=== PATIENT | male | born 1955 | race Caucasian/White ===

== ENCOUNTER → 2017-08-01 11:25 | Outpatient (CLI) | payer BC, SELFPAY ==
[2017-08-01 12:37] LABS: Add Manual Diff / Slide Review NO; Eosinophils Percent Auto 5.7 % (2-4); Hematocrit 38.3 % (41-53); Lymphocytes Percent Auto 21.4 % (25-40); Mean Corpuscular HGB Conc 33.9 % (30-36); Mean Corpuscular Hemoglobin 29.5 PG (26-34); Neutrophils Absolute Auto 5200 /uL (3000-5900); Neutrophils Percent Auto 60.9 % (50-75); Platelet Count 316 X10^3/uL (150-400); Red Blood Cell Count 4.41 X10^6/uL (4.5-5.9); Red Cell Distribution Width 13.2 % (11.6-14.8); White Blood Cell Count 8.5 X10^3/uL (4.5-11.0)
[2017-08-01 13:01] LABS: Alanine Aminotransferase 34 IU/L (21-72); Albumin 4.4 g/dL (3.5-5.0); Albumin Globulin Ratio 1.4 (1.0-2.8); Alkaline Phosphatase 73 U/L (38-126); Aspartate Aminotransferase 32 IU/L (17-59); BUN Creatinine Ratio 21.1 (6-22); Bilirubin Total 0.6 mg/dL (0.2-1.3); Blood Urea Nitrogen 19 mg/dL (9-20); Calcium 9.2 mg/dL (8.4-10.2); Carbon Dioxide 31 mmol/L (22-32); Chloride 99 mmol/L (98-107); Cholesterol 180 mg/dL (140-199); Estimated Glomerular Filt Rate > 60.0 mL/min (>60); Globulin 3.1 g/dL (1.7-4.1); Glucose 95 mg/dL (70-100); HDL Cholesterol 59 mg/dL (40-60); HEMOLYSIS < 15 (0-50); LDL Cholesterol Calculated 111 mg/dL (<100); Potassium 5.1 mmol/L (3.4-5.1); Sodium 139 mmol/L (137-145); Total Protein 7.5 g/dL (6.3-8.2); Triglycerides 51 mg/dL (35-150)
[2017-08-01 13:29] LABS: Thyroid Stimulating Hormone 2.34 uIU/mL (0.47-4.68)
[2017-08-01 16:05] LABS: Vitamin D 25 Hydroxy (D3) 70.3 ng/mL (30.0-100.0)
[2017-08-01 16:58] LABS: Hep C Virus Ab w/Reflex Quant NEGATIVE s/c (NEGATIVE)
== END ==
PROVIDERS: PCP Physician Assistant Medical; Visit Provider Physician Assistant Medical
DX: Z00.00 Encounter for general adult medical examination without abnormal findings (principal); E55.9 Vitamin D deficiency, unspecified; Z13.818 Encounter for screening for other digestive system disorders; E78.2 Mixed hyperlipidemia; F32.9 Major depressive disorder, single episode, unspecified
CPT/HCPCS: 36415; 80053; 80061; 82306; 84443; 85025; 86803

== ENCOUNTER → 2018-04-11 14:02 | Outpatient (CLI) | payer BC, SELFPAY ==
[2018-04-11 14:29] LABS: Blood Urea Nitrogen 26 mg/dL (9-20); Estimated Glomerular Filt Rate 56.3 mL/min (>60)
== END ==
PROVIDERS: Family Provider Internal Medicine; PCP Physician Assistant Medical; Visit Provider Orthopaedic Surgery
DX: Z01.818 Encounter for other preprocedural examination (principal)
CPT/HCPCS: 36415; 82565; 84520

== ENCOUNTER → 2019-08-13 19:22 | Outpatient (ROUT) | payer BC, SELFPAY ==
[2019-08-13 20:03] LABS: Creatine Kinase 117 U/L (55-170)
[2019-08-13 20:21] LABS: C-Reactive Protein Quant < 0.5 mg/dL (<1.0)
[2019-08-13 20:23] LABS: Erythrocyte Sedimentation Rate 15 MM/HR (0-15)
[2019-08-13 20:24] LABS: TSH w/ Reflex to FT4 2.06 uIU/mL (0.47-4.68)
[2019-08-16 10:12] LABS: Aldolase 4.5 U/L (3.3-10.3)
[2019-08-17 18:40] LABS: ANA Screen, IFA Positive (.)
== END ==
PROVIDERS: Family Provider Internal Medicine; PCP Physician Assistant Medical; Visit Provider Internal Medicine
DX: R53.83 Other fatigue (principal); M79.7 Fibromyalgia; R23.1 Pallor; I73.00 Raynaud's syndrome without gangrene
CPT/HCPCS: 82085; 82550; 84443; 85651; 86038; 86140

== ENCOUNTER → 2019-11-28 08:51 | Outpatient (CLI) | payer BC, SELFPAY ==
[2019-11-28 09:47] LABS: UR Morphine/Opiate cutoff 300 Positive (Negative); Ur Creatinine Normal (Normal); Ur Specific Gravity Normal (Normal); Urine Amphetamines Negative (Negative); Urine Barbiturates Negative (Negative); Urine Benzodiazepines Negative (Negative); Urine Cocaine Negative (Negative); Urine MDMA Negative (Negative); Urine Methadone Negative (Negative); Urine Methamphetamines Negative (Negative); Urine Oxycodone Negative (Negative); Urine Phencyclidine Negative (Negative); Urine Tetrahydrocannabinol Positive (Negative); Urine Tricyclic Antidepressant Negative (Negative); Urine pH Normal (Normal)
[2019-11-28 09:59] LABS: Erythrocyte Sedimentation Rate 11 MM/HR (0-15)
[2019-11-28 10:09] LABS: Alanine Aminotransferase 29 IU/L (<50); Albumin 4.2 g/dL (3.5-5.0); Albumin Globulin Ratio 1.4 (1.0-2.8); Alkaline Phosphatase 79 U/L (38-126); Aspartate Aminotransferase 31 IU/L (17-59); BUN Creatinine Ratio 31.1 (6-22); Bilirubin Total 0.5 mg/dL (0.2-1.3); Blood Urea Nitrogen 28 mg/dL (9-20); C-Reactive Protein Quant 0.7 mg/dL (<1.0); Calcium 9.4 mg/dL (8.4-10.2); Carbon Dioxide 30 mmol/L (22-32); Chloride 105 mmol/L (98-107); Cholesterol 212 mg/dL (140-199); Creatine Kinase 138 U/L (55-170); Estimated Glomerular Filt Rate > 60.0 mL/min (>60); Globulin 3.1 g/dL (1.7-4.1); Glucose 103 mg/dL (80-110); HDL Cholesterol 61 mg/dL (40-60); HEMOLYSIS < 15 (0-50); LDL Cholesterol Calculated 135 mg/dL (<100); Potassium 4.5 mmol/L (3.4-5.1); Sodium 139 mmol/L (137-145); Total Protein 7.3 g/dL (6.3-8.2); Triglycerides 78 mg/dL (35-150)
[2019-11-28 10:13] LABS: Rheumatoid Factor < 8.6 IU/mL (<12.0)
[2019-11-28 10:55] LABS: Vitamin B12 446 pg/mL (239-931)
[2019-11-28 15:05] LABS: Hep C Virus Ab w/Reflex Quant NEGATIVE s/c (NEGATIVE)
[2019-11-29 15:22] LABS: Albumin 3.6 g/dL (2.9-4.4); Alpha-1-Globulin 0.2 g/dL (0.0-0.4); Alpha-2-Globulin 0.8 g/dL (0.4-1.0); Globulin Total 3.1 g/dL (2.2-3.9); Protein, Total 6.7 g/dL (6.0-8.5)
[2019-12-01 17:13] LABS: CCP Antibodies IgG/IgA 3 units (0-19)
[2019-12-02 15:40] LABS: ANA Screen, IFA Positive (.)
== END ==
PROVIDERS: Family Provider Internal Medicine; PCP Internal Medicine; Referring Provider Internal Medicine; Visit Provider Internal Medicine
DX: E78.5 Hyperlipidemia, unspecified (principal); G89.4 Chronic pain syndrome; G62.9 Polyneuropathy, unspecified; R76.8 Other specified abnormal immunological findings in serum; M15.8 Other polyosteoarthritis
CPT/HCPCS: 36415; 80053; 80061; 80305; 82550; 82607; 84155; 84165; 85651; 86038; 86140; 86200; 86430; 86803

== ENCOUNTER → 2019-12-28 10:53 | Outpatient (CLI) | payer BC, SELFPAY ==
--- NOTE | 2019-12-28 | DI.MRI.S_ITS ---
PROCEDURE: MR LUMBAR SPINE WO CON INDICATIONS: Spinal stenosis, lumbar region with neurogenic claudication TECHNIQUE: Noncontrast sagittal T1 spin echo and T2 fast echo, sagittal STIR, axial T1 and T2 fast spin echo through the lumbar spine. In cases with scoliosis, additional coronal T2 fast spin echo may be performed. COMPARISON: [facility], CR, XR LUMBAR SPINE 2 OR 3 VIEWS, 12/18/2019, 15:21. [facility], MR, MR LUMBAR SPINE WITH/WITHOUT CONTRAST, 04/12/2018, 10:44. [facility], MR, L-SPINE WITHOUT CONTRAST, 09/13/2011, 13:56. FINDINGS: Image quality: Excellent. Alignment and Curvature: Trace retrolisthesis of L4 on L5 and of L5 on S1. Bone Marrow: Marrow is of normal overall signal. No acute vertebral body compression fractures. Spinal Cord: Conus medullaris terminates at the L1-L2 level. Visualized cord demonstrates normal signal and size. Paraspinous Soft Tissues: No paravertebral masses. T12-L1: No canal stenosis or foraminal stenosis. L1-L2: Unchanged. Mild facet hypertrophy. No canal stenosis or foraminal stenosis. L2-L3: Unchanged. Mild facet hypertrophy. No canal stenosis or foraminal stenosis. L3-L4: Stable findings. Mild disc bulge. Facet hypertrophy. No canal stenosis or significant foraminal stenosis. L4-L5: Chronic severe disc height loss. Diffuse posterior disc post osteophyte. Remote left hemilaminectomy. No central canal stenosis. Bilateral facet hypertrophy. Mild right foraminal narrowing. Moderate to severe left foraminal narrowing, in part secondary to a facet joint cyst, with flattening deformity on the exiting left L4 nerve root. L5-S1: Remote left hemilaminectomy. Severe disc height loss. Mild diffuse posterior disc post osteophyte. Bilateral facet hypertrophy. No central canal stenosis. Severe right foraminal narrowing with impingement on the right L5 nerve root. Mild left foraminal narrowing. IMPRESSION: 1. Remote left hemilaminectomy at L4-L5 and L5-S1. 2. No central canal stenosis. 3. Multilevel facet hypertrophy. 4. At L4-L5, there is moderate to severe left foraminal narrowing, in part secondary to a facet joint cyst. 5. At L5-S1, there is severe right foraminal narrowing. Dictated by: Dashawn Hartmann M.D. on 12/30/2019 at 9:30 Approved by: Dashawn Hartmann M.D. on 12/30/2019 at 9:46
== END ==
PROVIDERS: Family Provider Internal Medicine; PCP Internal Medicine; Referring Provider Orthopaedic Surgery; Visit Provider Orthopaedic Surgery
DX: M48.062 Spinal stenosis, lumbar region with neurogenic claudication (principal)
CPT/HCPCS: 72148

== ENCOUNTER → 2020-01-06 07:25 | Outpatient (CLI) | payer BC, SELFPAY ==
[2020-01-06 08:37] LABS: Cholesterol 234 mg/dL (140-199); HDL Cholesterol 63 mg/dL (40-60); LDL Cholesterol Calculated 147 mg/dL (<100); Triglycerides 119 mg/dL (35-150)
== END ==
PROVIDERS: Family Provider Internal Medicine; PCP Internal Medicine; Referring Provider Internal Medicine; Visit Provider Internal Medicine
DX: E78.5 Hyperlipidemia, unspecified (principal)
CPT/HCPCS: 36415; 80061

== ENCOUNTER → 2020-04-17 15:25 | Outpatient (CLI) | payer BC, SELFPAY ==
[2020-04-17] MEDS: COVID-19 VACC, Ad26(JANSSEN)/PF 0.5 ML IM (15:35)
== END ==
PROVIDERS: Family Provider Internal Medicine; PCP Internal Medicine; Visit Provider Internal Medicine
DX: Z23 Encounter for immunization (principal)
CPT/HCPCS: 0031A; 91303

== ENCOUNTER → 2021-11-19 15:30 | Outpatient (CLI) | payer BC, SELFPAY ==
--- NOTE | 2021-11-19 15:31 | DI.MRI.S_ITS ---
PROCEDURE: MR LUMBAR SPINE WO CON INDICATIONS: Spinal stenosis, lumbar TECHNIQUE: Noncontrast sagittal T1 spin echo and T2 fast echo, sagittal STIR, and T2 fast spin echo through the lumbar spine. In cases with scoliosis, additional coronal T2 fast spin echo may be performed. COMPARISON: [facility], MR, MR LUMBAR SPINE WO CON, 12/28/2019, 11:40. [facility], MR, MR LUMBAR SPINE WITH/WITHOUT CONTRAST, 04/12/2018, 10:44. [facility], MR, L-SPINE WITHOUT CONTRAST, 09/13/2011, 13:56. FINDINGS: Image quality: Excellent. Alignment and Curvature: Minimal dextroconvex scoliotic curvature is seen. No focal AP alignment abnormality is seen. Bone Marrow: Marrow is of normal overall signal. No acute vertebral body compression fractures. Spinal Cord: Conus medullaris terminates at the L1 level. Visualized cord demonstrates normal signal and size. Paraspinous Soft Tissues: No paravertebral masses. T12-L1: Normal appearance. L1-L2: Normal appearance. L2-L3: Normal appearance. L3-L4: Spxk-vr-vgyjxrzx loss of disc height and disc signal can be seen. Reactive marrow endplate changes are seen anteriorly, which are hypointense on T1-weighted imaging and hyperintense on T2 weighted imaging, which is most consistent with edema (Modic type I changes). Moderate disc bulge is seen, which is eccentric to the left. There is a superimposed central disc protrusion. Mild to moderate facet hypertrophy is seen. There is moderate left-sided and no significant right-sided neural foraminal narrowing. Mild to moderate central canal narrowing is seen. These imaging findings have progressed compared to the prior study. L4-L5: Moderate to severe loss of disc height and disc signal can be seen. Reactive marrow endplate changes are seen, which demonstrate mixed T1 weighted and T2-weighted signal, and are attributed to a combination of edema and fatty metaplasia (Modic type I and Modic type II changes). Moderate disc bulge is seen, which is eccentric to the left. There is a superimposed central disc protrusion. Moderate facet joint hypertrophy is seen. There is moderate right-sided and moderate to severe left-sided neural foraminal narrowing. There is a degree of compression seen upon the exiting left L4 nerve root. No central canal narrowing is seen. When comparison is made with the prior images, these findings are similar. L5-S1: Moderate to severe loss of disc height and disc signal can be seen. Reactive marrow endplate changes are seen which are hypointense on T1-weighted imaging and hyperintense on T2 weighted imaging, which is most consistent with edema (Modic type I changes). Moderate disc bulge is seen, which is eccentric to the right. Moderate facet joint hypertrophy is seen. Apparent left hemilaminectomy change can be seen. Please correlate with known patient history. There is moderate left-sided and moderate to severe right-sided neural foraminal narrowing. There is a degree of compression seen upon the exiting right L5 nerve root. No central canal narrowing is seen. When comparison is made with the prior images, these findings are similar. IMPRESSION: Focal lower lumbar spine degenerative changes are seen, which are slightly progressed at L3-L4 compared to 2020. Dictated by: Sinan Guzman M.D. on 11/19/2021 at 16:07 Approved by: Sinan Guzman M.D. on 11/19/2021 at 16:11
== END ==
PROVIDERS: Family Provider Internal Medicine; PCP Internal Medicine; Referring Provider Physician Assistant; Visit Provider Physician Assistant
DX: M51.36 Other intervertebral disc degeneration, lumbar region (principal); M48.062 Spinal stenosis, lumbar region with neurogenic claudication; M47.816 Spondylosis without myelopathy or radiculopathy, lumbar region; Z98.890 Other specified postprocedural states
CPT/HCPCS: 72148

== ENCOUNTER 2022-11-16 09:27 | Emergency (ER) | payer MEDICARE, BC, SELFPAY ==
[2022-11-16 09:30] VITALS: BP 146/72; PULSE 79; RESP 20; TEMP 37.1; O2SAT 99; BMI 24.3
--- NOTE | 2022-11-16 09:38 | DI.RAD.S_ITS ---
PROCEDURE: XR CHEST 1V INDICATIONS: productive cough TECHNIQUE: One view of the chest was acquired. COMPARISON: [facility], , CHEST 2 VIEW, 05/27/2010, 16:09. FINDINGS: Surgical changes and devices: Partially visualized thoracolumbar fixation rods. Lungs and pleura: Lungs are clear. No pleural effusions or pneumothorax. Mediastinum: Mediastinal contours appear normal. Heart size is normal. Bones and chest wall: No suspicious bony lesions. Overlying soft tissues appear unremarkable. IMPRESSION: Portable chest within normal limits for age. Dictated by: Nisa Ayala M.D. on 11/16/2022 at 10:15 Approved by: Nisa Ayala M.D. on 11/16/2022 at 10:15
--- NOTE | 2022-11-16 10:30 | ED.URI ---
HPI - URI/Sore Throat General Chief Complaint: Upper Respiratory Symptoms Stated Complaint: lung infection Time Seen by Provider: 11/16/22 10:30 Source: patient Mode of arrival: Ambulatory History of Present Illness HPI Narrative: Patient here for productive cough. Patient states tested positive for COVID-19 2 weeks ago. He originally had green sputum and then transitioned to yellow and then clear. However this morning had some green sputum. No hemoptysis. No dyspnea. No chest pain. No nausea or vomiting. Patient in no distress. Vital signs are reassuring. No hypoxia. Related Data Home Medications Medication Instructions Recorded Confirmed ALBUTEROL SULFATE (Ventolin / 1 puff INH PRN ##0 04/29/10 Proventil) CARISOPRODOL (Soma) 350 mg PO BIDP ##0 04/29/10 FLUTICASONE 50MCG COLBY INH- 2 spray intranasal Q DAY ##0 04/29/10 (FLUTICASONE PROPIONATE) FLUTICASONE/SALMETEROL (Advair 1 puff IH BID ##0 04/29/10 100-50 Diskus) GABAPENTIN (Neurontin) 300 mg PO TID ##0 04/29/10 HYDROCODONE/ACET 5/500 - 1 - 2 tab PO Q4-6H PRN ##0 04/29/10 (Hydrocodon-Acetaminophen 5-500) Trazodone Hydrochloride (Trazodone 50 mg PO HS ##0 04/29/10 HCl) Venlafaxine Hydrochloride (Effexor) 150 mg PO Q DAY ##0 04/29/10 CHOLECALCIFEROL (VITAMIN D3) Q DAY ##0 06/21/11 (Vitamin D-3) hydrocortisone 1 % topical ointment 1 % topical ##30 04/18/12 Allergies Allergy/AdvReac Type Severity Reaction Status Date / Time No Known Drug Allergies Allergy Verified 11/16/22 09:30 Review of Systems Review of Systems Narrative: GENERAL: negative chills, fatigue, malaise, fever, sweats. HEENT: negative sinus pain, ear pain, sore throat RESPIRATORY: negative dyspnea, positive cough CARDIOVASCULAR: negative chest pain, palpitations GASTROINTESTINAL: negative nausea, vomiting, abdominal pain : negative dysuria, frequency, hematuria MUSCULOSKELETAL: negative muscle or bony pain SKIN: negative rash, skin lesions NEUROLOGIC: negative weakness, numbness ROS Unobtainable: All systems reviewed & are unremarkable except as noted in HPI and below Patient History Social History Smoking Status: Never smoker Smoking Status: Never smoker Substance Use Type: does not use Exam Narrative Exam Narrative: GENERAL: in no distress, not toxic not dyspneic HEAD: Normocephalic. EYES: Pupils equal round NECK: Trachea midline. CARDIOVASCULAR: Regular rate and rhythm RESPIRATORY: Clear to auscultation. Breath sounds equal bilaterally. No wheezes, rales, or rhonchi. Speaking full sentences., no respiratory distress GASTROINTESTINAL: Abdomen soft, non-tender EXTREMITIES: No gross deformities. BACK: No flank tenderness. NEURO: AOx4. SKIN: Warm and dry PSYCH: Not anxious, is cooperative Initial Vital Signs Initial Vital Signs: Vital Signs Temperature 98.7 F 11/16/22 09:30 Pulse Rate 79 11/16/22 09:30 Respiratory Rate 20 11/16/22 09:30 Blood Pressure 146/72 H 11/16/22 09:30 Pulse Oximetry 99 11/16/22 09:30 Oxygen Delivery Method Room Air 11/16/22 09:30 Course Orders Ordered: ED Orders 11/16/22 09:38 Chest [XR chest 1V] Stat Vital Signs Vital signs: Vital Signs - 8 hr 11/16/22 10:33 Pulse Rate 72 Blood Pressure 137/75 Pulse Oximetry 97 Oxygen Delivery Method Room Air MDM - URI/Sore Throat MDM Narrative Medical decision making narrative: Patient here for productive cough. Patient states tested positive for COVID-19 2 weeks ago. He originally had green sputum and then transitioned to yellow and then clear. However this morning had some green sputum. No hemoptysis. No dyspnea. No chest pain. No nausea or vomiting. Patient in no distress. Vital signs are reassuring. No hypoxia. After history and exam chest x-ray [facility] CC: Cough Complicating co-morbidities: COVID-19 Data collected from: Patient Medical records reviewed: No recent visit for this complaint Differential considered: Includes but not limited to pneumonia bronchitis COVID infection Exam documented above, pertinent findings include: Clear lungs Lab Test results independently reviewed as above. Pertinent findings: None indicated Imaging studies independently reviewed: Chest x-ray no acute finding Treatments: None indicated Re-evaluations: Reviewed exam results and chest x-ray results with patient. They are reassuring at this time. Clear lung sounds, no pneumonia on x-ray not requiring supplemental oxygen. Return precautions reviewed with him. No prescriptions indicated. He agrees with plan. He desires discharge home Discussion: Appropriate for discharge home exam and x-ray imaging are reassuring. No blood work indicated. Patient nontoxic appearing. No fever. Not requiring supplemental oxygen. In no respiratory distress. Return precautions reviewed with patient. He desires discharge home. No prescriptions indicated. Diagnosis: COVID-19 bronchitis Discharge Plan Departure Patient Disposition: Home Clinical Impression: COVID-19, Bronchitis Instructions: DI for Acute Bronchitis, COVID-19 Activity Restrictions/Additional Instructions: You may continue home medications. See family doctor in a week for re-evaluation. Call provided primary care referral phone number to establish family doctor. Call [phone]. Return if worse if any questions or concerns. Exam is reassuring at this time. X-ray is reassuring, no pneumonia seen. No prescriptions indicated at this time. Prescriptions: No Action FLUTICASONE 50MCG COLBY INH- (FLUTICASONE PROPIONATE) 2 spray Intranasal Q DAY Qty: 0 FLUTICASONE/SALMETEROL (Advair 100-50 Diskus) 1 puff IH BID Qty: 0 HYDROCODONE/ACET 5/500 - (Hydrocodon-Acetaminophen 5-500) 1 - 2 tab PO Q4-6H PRN Qty: 0 Venlafaxine Hydrochloride (Effexor) 150 mg PO Q DAY Qty: 0 ALBUTEROL SULFATE (Ventolin / Proventil) 1 puff INH PRN Qty: 0 GABAPENTIN (Neurontin) 300 mg PO TID Qty: 0 CARISOPRODOL (Soma) 350 mg PO BIDP Qty: 0 Trazodone Hydrochloride (Trazodone HCl) 50 mg PO HS Qty: 0 CHOLECALCIFEROL (VITAMIN D3) (Vitamin D-3) Q DAY Qty: 0 hydrocortisone 28.35 GM ointment 1 % Topical Qty: 30 Referrals: Brynn Carty PA-C [Primary Care Provider] - Stand Alone Forms: Patient Portal/API
[2022-11-16 10:33] VITALS: BP 137/75; PULSE 72; O2SAT 97
== END 2022-11-16 10:37 | disposition home or self-care (01) ==
PROVIDERS: Emergency Provider Emergency Medicine; Family Provider Internal Medicine; PCP Physician Assistant
DX: U07.1 COVID-19 (principal); J20.9 Acute bronchitis, unspecified
CPT/HCPCS: 71045; 99283